=== PATIENT | female | born 1975 | race Caucasian/White ===

== ENCOUNTER → 2022-01-05 | Outpatient (CLI) | payer OTHER ==
[2022-01-10 15:10] LABS: CHLAMYDIA BY NAA Negative (Negative); GONOCOCCUS BY NAA Negative (Negative); HPV 16 Negative (Negative); HPV 18 Negative (Negative); HPV OTHER HR TYPES Negative (Negative); TRICH VAG BY NAA Negative (Negative)
== END | disposition home or self-care (01) ==
LOC: LAB 16:00 → LAB SHORT 16:00
PROVIDERS: Family Medicine
DX: Z01.419 Encounter for gynecological examination (general) (routine) without abnormal findings (principal)
CPT/HCPCS: 87491; 87591; 87624; 87661; G0123

== ENCOUNTER 2024-09-01 07:03 | Day surgery (SDC) | payer OTHER ==
[~2024-09-01] VITALS: Ht 170.2 cm; Wt 73.2 kg
[2024-09-01] VITALS (14 sets, daily range): BP systolic 77–150; BP diastolic 61–89
[~2024-09-01 07:03] MED LIST: CONEST.625 PO; METH40 PO; NS 1,000 ML BAG IR SCH; NS 500 ML IV SCH
[2024-09-01] MEDS ORDERED: propofoL 20 ML IV ONE (07:15)
[2024-09-01] MEDS ORDERED: Midazolam HCl 1MG / ML 2ML Vial ONE (08:12)
--- NOTE | 2024-09-01 08:19 | NUR ---
09/01/24 0819 Refugio Medellin CONFIRMED AND REVIEWED H&P, MEDCICATIONS, ALLERGIES, MEDICAL HISTORY, RESPIRATORY HISTORY, VITAL SIGNS, 3-LEAD EKG, CONSENTS, AND PHYSICIAN ORDERS. PATIENT CONFIRMS NPO STATUS AND AGREES WITH SCHEDULED PROCEDURE. MONITOR INTACT WITH CONTINUOUS PULSE OXIMETRY, CAPNOGRAPHY, 3-LEAD EKG, INTERMITTENT BP. SUPPLEMENTAL O2 TO BE TITRATED THROUGHOUT PROCEDURE TO MAINTAIN O2 SATURATION ABOVE 90%. PATIENT DETERMINED TO BE ASA APPROPRIATE FOR PROPOFOL SEDATION PRIOR TO START OF PROCEDURE BY DR. NICHOLAS.
[2024-09-01] MEDS ORDERED: ePHEDrine Sulfate 50 MG/ML 1ML Injection ONE (08:29)
--- NOTE | 2024-09-01 09:14 | NUR ---
Patient up to Ambulate independently. Gait steady. Discharge instructions reviewed with patient. Patient verbalizes understanding. Copy given to patient to take home. Patient States Post-Procedure ride home has been arranged. Discharged via wheelchair to private car for ride home.
== END 2024-09-01 09:14 | disposition home or self-care (01) ==
LOC: ORSCMMR 07:03 → ORD 08:00 → ORSCMMR 08:00
PROVIDERS: Internal Medicine Gastroenterology
PROC: 0DJD8ZZ Inspection of Lower Intestinal Tract, Via Natural or Artificial Opening Endoscopic (ICD-10-PCS; principal; 2024-09-01 08:00)
DX: K62.5 Hemorrhage of anus and rectum (principal); K59.03 Drug induced constipation; Z79.890 Hormone replacement therapy; F17.290 Nicotine dependence, other tobacco product, uncomplicated; Z79.899 Other long term (current) drug therapy
CPT/HCPCS: J2250; J2704; J7040